=== PATIENT | female | born 1935 | race Hispanic/Latino ===

== ENCOUNTER 2016-07-03 09:24 | Outpatient (CLI) | payer MEDICARE, OTHER ==
[2016-07-03 16:53] LABS: ALT (SGPT) 13 U/L (8-55); AST (SGOT) 18 U/L (5-34); Alkaline Phosphatase 94 U/L (40-150); Anion Gap 11 mmol/L (10-20); BUN (Urea Nitrogen) 12 mg/dL (9.8-20.1); Bilirubin, Total 0.5 mg/dL (0.2-1.2); Calc. Creatinine Clearance 0 mL/min (70-130); Carbon Dioxide 28 mmol/L (23-31); Cardiac Risk 4.3 (Less than 4.5); Chloride 107 mmol/L (98-107); Cholesterol 170 mg/dL (< 200 Desired); Estimated GFR-MDRD 88; Globulin 2.5 g/dL (2.4-3.5); Glucose 89 mg/dL (83-110); HDL Cholesterol 40 mg/dL (>60 Neg Risk); LDL Cholesterol, Calculated 107 mg/dL; Potassium 4.7 mmol/L (3.5-5.1); Protein, Total 6.5 g/dL (5.8-8.1); Sodium 141 mmol/L (136-145); Triglycerides 116 mg/dL (Less than 150)
[2016-07-03 16:56] LABS: Thyroid Stimulating Hormone 2.3213 uIU/mL (0.35-4.94)
[2016-07-03 17:42] LABS: Eosinophils 1 % (0-10); Hemoglobin 14.7 g/dL (12.0-16.0); Lymphocytes 21 % (21-51); MDiff Complete? YES; Mean Corpuscular HGB CONC 31.8 g/dL (32.0-36.0); Mean Corpuscular Hemoglobin 30.2 pg (27.0-31.0); Mean Platelet Volume 9.4 fL (7.4-10.4); Monocytes 6 % (0-10); Neutrophil 72 % (42-75); Platelet Count 322 thou/uL (130-400); RBC Distribution Width 12.9 % (11.5-14.5); Red Blood Cell (RBC) Count 4.88 mill/uL (4.20-5.40); White Blood Cell (WBC) Count 10.9 thou/uL (4.8-10.8)
== END 2016-07-03 09:25 | disposition home or self-care (01) ==
LOC: LABLEX 09:24
PROVIDERS: ATTEND Family Medicine
DX: Z13.6 Encounter for screening for cardiovascular disorders (principal); M81.0 Age-related osteoporosis without current pathological fracture; R63.4 Abnormal weight loss
CPT/HCPCS: 80053; 80061; 82306; 84443; 85025

== ENCOUNTER 2016-07-18 13:52 | Outpatient (CLI) | payer MEDICARE, OTHER | END 2016-07-18 13:53 | disposition home or self-care (01) | LOC: LABLEX 13:52 | PROVIDERS: ATTEND Family Medicine | DX: R35.0 Frequency of micturition (principal) | CPT/HCPCS: 87086 ==

== ENCOUNTER 2016-07-19 11:41 | Outpatient (CLI) | payer MEDICARE, OTHER ==
--- NOTE | 2016-07-19 15:22 | RAD ---
LUMBAR SPINE THREE VIEWS: Date: 07-19-16 FINDINGS: No fracture was appreciated. The disc spaces are normal in height. Degenerative changes are present but minimal for age. Some calcification is seen in the aorta. The bones are minimally osteopenic. IMPRESSION: No acute findings. POS: HOME
== END 2016-07-19 11:42 | disposition home or self-care (01) ==
LOC: BURRAD 11:41
PROVIDERS: ATTEND Family Medicine
DX: M54.5 Low back pain (principal); R93.9 Diagnostic imaging inconclusive due to excess body fat of patient
CPT/HCPCS: 36415; 72100; 82565

== ENCOUNTER 2016-12-20 11:58 | Emergency (ER) | payer MEDICARE, MEDICAID ==
[~2016-12-20 11:58] MED LIST: Iopamidol 370 76% 100 ML VIAL ONE
[2016-12-20 12:34] LABS: Bilirubin Negative (Negative); Blood, Urine Trace (Negative); Clarity Clear (Clear); Glucose, Urine (Dipstick) Negative (Negative); Leukocyte Small (Negative); Nitrite Negative (Negative); Protein, Urine (Dipstick) Negative (Neg-Trace); Urobilinogen 0.2 mg/dL (0.2-1.0); pH, Urine 6.5 (5.0-9.0)
[2016-12-20] MEDS ORDERED: Ondansetron ODT 4 MG TAB ONE (12:34)
[2016-12-20 12:37] LABS: #Basophils 0.1 thou/uL (0.0-0.2); #Eosinphils 0.1 thou/uL (0.0-0.7); #Lymphocytes 2.3 thou/uL (1.20-3.40); #Monocytes 0.6 thou/uL (0.11-0.59); #Neutrophils 8.8 thou/uL (1.40-6.50); %Basophils 1.1 % (0.0-1.0); %Eosinophils 1.1 % (0.0-10.0); %Monocytes 5.2 % (0.0-10.0); %Neutrophils 73.6 % (42.0-75.0); Mean Corpuscular HGB CONC 32.8 g/dL (32.0-36.0); Mean Corpuscular Hemoglobin 30.7 pg (27.0-31.0); Mean Corpuscular Volume 93.7 fl (81.0-99.0); Mean Platelet Volume 8.8 fL (7.4-10.4); Platelet Count 305 thou/uL (130-400); RBC Distribution Width 12.4 % (11.5-14.5)
[2016-12-20 12:39] LABS: Bacteria/HPF Rare-Few HPF (None Seen); RBC/HPF 0-3 HPF (0-3); Squamous Epithelial 0-3 HPF (0-3); WBC/HPF 0-3 HPF (0-3)
[2016-12-20 12:49] LABS: ALT (SGPT) 12 U/L (8-55); AST (SGOT) 22 U/L (5-34); Albumin 4.4 g/dL (3.4-4.8); Alkaline Phosphatase 112 U/L (40-150); Anion Gap 13 mmol/L (10-20); BUN (Urea Nitrogen) 11 mg/dL (9.8-20.1); Bilirubin, Total 0.6 mg/dL (0.2-1.2); Calc. Creatinine Clearance 0 mL/min (70-130); Calcium 9.6 mg/dL (7.8-10.44); Carbon Dioxide 27 mmol/L (23-31); Chloride 103 mmol/L (98-107); Estimated GFR-MDRD 86; Globulin 3.5 g/dL (2.4-3.5); Glucose 96 mg/dL (83-110); Lipase 20 U/L (8-78); Potassium 4.3 mmol/L (3.5-5.1); Protein, Total 7.9 g/dL (6.0-8.3); Sodium 139 mmol/L (136-145)
--- NOTE | 2016-12-20 14:39 | CT ---
CT ABDOMEN WITH CONTRAST CT PELVIS WITH CONTRAST: DATE: 12-20-16 HISTORY: 81-year-old female with acute right lower quadrant abdominal pain. COMPARISON: 11-30-13 TECHNIQUE: IV injection of iodinated contrast media: 90 ml of Isovue Oral contrast media: Not administered FINDINGS: The appendix is not visualized. Because of lack of distention and lack of oral contrast, it is diffi cult to evaluate for mural thickening of the colon for colitis. There is no acute diverticulitis. Ur inary bladder has thin, normal blood. Uterus and appendix are surgically absent. Gallbladder is pres ent. No signs of acute cholecystitis. No major pathology identified involving the abdominal aorta, a drenals, pancreas, liver or spleen. Atherosclerotic calcification without aneurysm of the abdominal aorta and iliac arteries. No small bowel dilatation. No pneumoperitoneum or ascites. No pleural effu mango. No major interval change. IMPRESSION: 1. No acute findings. 2. Status post hysterectomy and appendectomy. KAMI Rees POS: [facility]
== END 2016-12-20 14:27 | disposition home or self-care (01) ==
LOC: BURERS 11:58
DX: K52.9 Noninfective gastroenteritis and colitis, unspecified (principal); M81.0 Age-related osteoporosis without current pathological fracture; F17.210 Nicotine dependence, cigarettes, uncomplicated
CPT/HCPCS: 74177; 80053; 81003; 81015; 83690; 85025; A4216; Q0162

== ENCOUNTER 2019-10-02 22:45 | Emergency (ER) | payer MEDICARE, OTHER ==
[2019-10-02 23:41] LABS: #Basophils 0.1 thou/uL (0.0-0.2); #Eosinphils 0.1 thou/uL (0.0-0.7); #Lymphocytes 2.1 thou/uL (1.20-3.40); #Monocytes 0.9 thou/uL (0.11-0.59); #Neutrophils 8.9 thou/uL (1.40-6.50); %Basophils 0.9 % (0.0-1.0); %Monocytes 7.2 % (0.0-10.0); %Neutrophils 73.9 % (42.0-75.0); Hemoglobin 12.5 g/dL (12.0-16.0); Mean Corpuscular Hemoglobin 29.8 pg (27.0-31.0); Mean Corpuscular Volume 96.2 fL (78.0-98.0); Mean Platelet Volume 9.4 fL (7.4-10.4); Platelet Count 267 thou/uL (130-400); White Blood Cell (WBC) Count 12.1 thou/uL (4.8-10.8)
[2019-10-02 23:56] LABS: ALT (SGPT) 13 U/L (8-55); AST (SGOT) 17 U/L (5-34); Albumin 3.9 g/dL (3.4-4.8); Alkaline Phosphatase 76 U/L (40-110); Anion Gap 12 mmol/L (10-20); BUN (Urea Nitrogen) 11 mg/dL (9.8-20.1); Bilirubin, Total 0.4 mg/dL (0.2-1.2); Calc. Creatinine Clearance 0 mL/min (70-130); Calcium 8.9 mg/dL (7.8-10.44); Carbon Dioxide 27 mmol/L (23-31); Chloride 106 mmol/L (98-107); Estimated GFR-MDRD Greater than 90; Globulin 2.3 g/dL (2.4-3.5); Glucose 112 mg/dL (83-110); Lipase 20 U/L (8-78); Potassium 3.6 mmol/L (3.5-5.1); Protein, Total 6.2 g/dL (6.0-8.3); Sodium 141 mmol/L (136-145)
== END 2019-10-03 00:55 | disposition home or self-care (01) ==
LOC: BURERS 22:45
DX: A05.9 Bacterial foodborne intoxication, unspecified (principal); M81.0 Age-related osteoporosis without current pathological fracture; F17.210 Nicotine dependence, cigarettes, uncomplicated
CPT/HCPCS: 36415; 80053; 83605; 83690; 85025; 93005

== ENCOUNTER 2020-03-19 20:49 | Emergency (ER) | payer MEDICARE, OTHER ==
[2020-03-19 22:10] LABS: #Basophils 0.2 thou/uL (0.0-0.2); #Eosinphils 0.1 thou/uL (0.0-0.7); #Lymphocytes 1.1 thou/uL (1.20-3.40); #Monocytes 1.1 thou/uL (0.11-0.59); #Neutrophils 15.4 thou/uL (1.40-6.50); %Basophils 0.9 % (0.0-1.0); %Eosinophils 0.3 % (0.0-10.0); %Lymphocytes 6.3 % (21.0-51.0); %Monocytes 6.3 % (0.0-10.0); %Neutrophils 86.1 % (42.0-75.0); Hemoglobin 12.2 g/dL (12.0-16.0); Mean Corpuscular HGB CONC 33.6 g/dL (32.0-36.0); Mean Corpuscular Hemoglobin 30.6 pg (27.0-31.0); Mean Corpuscular Volume 91.2 fL (78.0-98.0); Mean Platelet Volume 8.7 fL (7.4-10.4); Platelet Count 246 thou/uL (130-400); RBC Distribution Width 12.9 % (11.5-14.5); Red Blood Cell (RBC) Count 3.98 mill/uL (4.20-5.40); White Blood Cell (WBC) Count 17.8 thou/uL (4.8-10.8)
[2020-03-19 22:16] LABS: Bilirubin Negative (Negative); Blood, Urine Negative (Negative); Clarity Slightly Cloudy (Clear); Glucose, Urine (Dipstick) Negative (Negative); Ketone, Urine Trace mg/dL (Negative); Leukocyte Trace (Negative); Nitrite Negative (Negative); Protein, Urine (Dipstick) Negative (Neg-Trace); Specific Gravity, Urine 1.025 (1.005-1.030)
[2020-03-19 22:20] LABS: ALT (SGPT) 15 U/L (8-55); AST (SGOT) 21 U/L (5-34); Albumin 3.8 g/dL (3.4-4.8); Alkaline Phosphatase 68 U/L (40-110); Anion Gap 11 mmol/L (10-20); BUN (Urea Nitrogen) 10 mg/dL (9.8-20.1); Bilirubin, Total 0.3 mg/dL (0.2-1.2); Calc. Creatinine Clearance 0 mL/min (70-130); Calcium 8.3 mg/dL (7.8-10.44); Carbon Dioxide 27 mmol/L (23-31); Chloride 105 mmol/L (98-107); Globulin 2.1 g/dL (2.4-3.5); Glucose 137 mg/dL (83-110); Potassium 3.6 mmol/L (3.5-5.1); Protein, Total 5.9 g/dL (5.8-8.1); Sodium 139 mmol/L (136-145)
[2020-03-19 22:26] LABS: RBC/HPF 0-3 HPF (0-3); Squamous Epithelial 0-3 HPF (0-3)
[2020-03-19 22:27] LABS: Bacteria/HPF Rare-Few HPF (None Seen)
--- NOTE | 2020-03-20 10:34 | CT ---
PRELIMINARY REPORT/[facility]/EMERGENCY AFTER HOURS PROCEDURE: EXAM: CT Chest with Intravenous Contrast. CT Abdomen and Pelvis with Intravenous Contrast CLINICAL HISTORY: N/V, HX OF BREAST CA TECHNIQUE: Axial computed tomography images of the chest, abdomen and pelvis with intravenous contrast. CONTRAST: With; 100ML ISO 370 COMPARISON: None provided. FINDINGS: CHEST: LUNGS: Mild to moderate emphysematous changes noted. Radiation changes seen along the periphery of the righ t upper lobe and right middle lobe. No focal consolidation visualized. PLEURAL SPACES: No pleural effusion. No pneumothorax. HEART AND MEDIASTINUM: No cardiomegaly. No significant pericardial effusion. LYMPH NODES: No lymphadenopathy. ABDOMEN AND PELVIS: LIVER: Unremarkable. No focal lesions. GALLBLADDER AND BILE DUCTS: Punctate gallstones. No gross CT evidence for acute cholecystitis. PANCREAS: Unremarkable. SPLEEN: Unremarkable. ADRENAL GLANDS: Unremarkable. KIDNEYS, URETERS, AND BLADDER: Unremarkable. No hydronephrosis or nephrolithiasis. No ureteral or bladder calculi. STOMACH AND BOWEL: No obstruction. Scattered areas of wall thickening seen of the colon may represent possible mild non specific colitis APPENDIX: No CT evidence for appendicitis. PERITONEUM: No free fluid. No free air. LYMPH NODES: No lymphadenopathy. REPRODUCTIVE: Unremarkable as visualized. VASCULATURE: No aortic aneurysm. BONES AND SOFT TISSUES: Scattered sclerotic areas seen in the osseous structures may represent possible metastases. IMPRESSION: Mild to moderate emphysematous changes. Postradiation changes seen in the right upper lobe and right middle lobe. Scattered areas of wall thickening seen in the colon may represent a possible nonspecific colitis. N o evidence for bowel obstruction. ELECTRONICALLY SIGNED BY: Lorraine Martinez MD Mar 19, 2020 11:14:31 PM RESEARCH PHYSIOLOGIST This report is intended for review by the ordering physician only, in accordance of law. If you recei ve this report in error, please call [facility] at [phone]. FINAL REPORT CT CHEST AND ABDOMEN AND PELVIS WITH CONTRAST: Date: 03/19/2020 Comparison made with the prior study of 05/25/2019 done at [facility]. There is a history of breast cancer in this patient, along with a bone scan and prior CT suggesting s ome probable bony metastases. CT THORAX: Cuts through the low neck suggest that there may be some thyroid nodules bilaterally. This would be b herlinda assessed with ultrasound. The lungs show emphysematous changes, but no nodules, effusions, or i nfiltrates. There is some scarring in the lateral portions of the base of the right upper lobe and th e right middle lobe. These are likely post radiation induced. No mediastinal adenopathy was seen. A f ew calcifications were seen in the left coronary system, but not many. There is no pericardial effusi on. The aorta is normal in caliber throughout. CT ABDOMEN AND PELVIS: The liver, spleen, pancreas, and adrenal glands are unremarkable, though the left adrenal gland was d ifficult to assess fully. The kidneys shows no solid mass or hydronephrosis. There is probably a smal l subcentimeter cyst in the left kidney. The aorta shows arteriosclerotic change, but no dilation. Fluid is seen in the stomach and duodenum, and a few of the loops of proximal small bowel. None of th e areas are dilated or markedly thickened. Some of the colon might have some slight thickening of it s blood, but this is a borderline finding and not constant throughout. No free air or free fluid was seen. Distal small bowel is also somewhat fluid-filled. CT of the pelvis shows no pelvic masses or fluid collections. There are numerous sclerotic areas throughout both that are consistent with metastatic disease. These are predominantly located in the bony pelvis and the proximal left femur. At least one sclerotic are a is seen in one of the left ribs. Looking at the prior study, all of these were present before, but have increased in size slightly. They are presumed to be metastatic disease. IMPRESSION: 1. Nonspecific abdominal findings with no evidence of obstruction. Mild colitis or enteritis could b e present. 2. Findings consistent with sclerotic bony metastases, as has been mentioned before. Most of them sh ow slight growth since the April study. The total number does not seem more than previously. I would note that there may be a tiny metastasis attached to the meninges in the spinal canal at the L2 level , but this is less certain. 3. Emphysematous changes in the lungs. 4. Possible thyroid nodules. Report in agreement with preliminary reading by [facility]. POS: HOME
== END 2020-03-20 00:05 | disposition home or self-care (01) ==
LOC: BURERS 20:49
DX: N39.0 Urinary tract infection, site not specified (principal); R11.2 Nausea with vomiting, unspecified; Z85.3 Personal history of malignant neoplasm of breast; F17.210 Nicotine dependence, cigarettes, uncomplicated
CPT/HCPCS: 36415; 71260; 74177; 80053; 81003; 81015; 84484; 85025; 93005; Q9967

== ENCOUNTER 2020-11-25 14:03 | Emergency (ER) | payer MEDICARE, OTHER ==
[2020-11-25 15:40] LABS: #Basophils 0.1 thou/uL (0.0-0.2); #Eosinphils 0.1 thou/uL (0.0-0.7); #Lymphocytes 1.3 thou/uL (1.20-3.40); #Monocytes 0.7 thou/uL (0.11-0.59); #Neutrophils 12.4 thou/uL (1.40-6.50); %Basophils 0.6 % (0.0-1.0); %Eosinophils 0.4 % (0.0-10.0); %Lymphocytes 8.9 % (21.0-51.0); %Monocytes 4.7 % (0.0-10.0); %Neutrophils 85.3 % (42.0-75.0); Hemoglobin 12.4 g/dL (12.0-16.0); Mean Corpuscular HGB CONC 32.8 g/dL (32.0-36.0); Mean Corpuscular Hemoglobin 30.1 pg (27.0-31.0); Mean Corpuscular Volume 91.9 fL (78.0-98.0); Mean Platelet Volume 9.7 fL (7.4-10.4); Platelet Count 258 thou/uL (130-400); RBC Distribution Width 14.1 % (11.5-14.5); Red Blood Cell (RBC) Count 4.12 mill/uL (4.20-5.40); White Blood Cell (WBC) Count 14.6 thou/uL (4.8-10.8)
[2020-11-25 15:41] LABS: ALT (SGPT) 23 U/L (8-55); AST (SGOT) 26 U/L (5-34); Albumin 3.8 g/dL (3.4-4.8); Alkaline Phosphatase 76 U/L (40-110); Anion Gap 12 mmol/L (10-20); BUN (Urea Nitrogen) 9 mg/dL (9.8-20.1); Bilirubin, Total 0.5 mg/dL (0.2-1.2); Calc. Creatinine Clearance 0 mL/min (70-130); Calcium 8.7 mg/dL (7.8-10.44); Carbon Dioxide 26 mmol/L (23-31); Chloride 104 mmol/L (98-107); Globulin 2.3 g/dL (2.4-3.5); Glucose 107 mg/dL (83-110); Lipase 16 U/L (8-78); Potassium 3.8 mmol/L (3.5-5.1); Protein, Total 6.1 g/dL (5.8-8.1); Sodium 138 mmol/L (136-145)
[2020-11-25] MEDS ORDERED: Ondansetron PF 4 MG/2 ML Vial ONE (15:45)
[2020-11-25 16:13] LABS: Bilirubin Negative (Negative); Blood, Urine Negative (Negative); Clarity Clear (Clear); Glucose, Urine (Dipstick) Negative (Negative); Ketone, Urine Negative (Negative); Leukocyte Negative (Negative); Nitrite Negative (Negative); Protein, Urine (Dipstick) Negative (Neg-Trace); Urobilinogen 0.2 mg/dL (Less than 2)
[2020-11-26 18:41] LABS: SARS-CoV-2 PCR by NAA Not Detected (NotDetected)
== END 2020-11-25 17:10 | disposition home or self-care (01) ==
LOC: BURERS 14:03
DX: R10.9 Unspecified abdominal pain (principal); R11.2 Nausea with vomiting, unspecified; M81.0 Age-related osteoporosis without current pathological fracture; F17.210 Nicotine dependence, cigarettes, uncomplicated; Z20.822 Contact with and (suspected) exposure to COVID-19; Z85.3 Personal history of malignant neoplasm of breast
CPT/HCPCS: 74177; 80053; 81003; 83605; 83690; 85025; 93005; 96374; 99284; U0003; U0005; 36415; J2405

== ENCOUNTER 2021-02-08 18:57 | Emergency (ER) | payer MEDICARE, OTHER ==
[2021-02-08 19:31] LABS: #Basophils 0.1 thou/uL (0.0-0.2); #Eosinphils 0.1 thou/uL (0.0-0.7); #Lymphocytes 1.1 thou/uL (1.20-3.40); #Neutrophils 14.6 thou/uL (1.40-6.50); %Basophils 0.7 % (0.0-1.0); %Eosinophils 0.4 % (0.0-10.0); %Lymphocytes 6.6 % (21.0-51.0); %Monocytes 5.6 % (0.0-10.0); %Neutrophils 86.7 % (42.0-75.0); Hemoglobin 12.8 g/dL (12.0-16.0); Mean Corpuscular HGB CONC 33.4 g/dL (32.0-36.0); Mean Corpuscular Hemoglobin 30.8 pg (27.0-31.0); Mean Platelet Volume 8.1 fL (7.4-10.4); Platelet Count 293 thou/uL (130-400); Red Blood Cell (RBC) Count 4.15 mill/uL (4.20-5.40); White Blood Cell (WBC) Count 16.8 thou/uL (4.8-10.8)
[2021-02-08 19:44] LABS: Bilirubin Small (Negative); Blood, Urine Negative (Negative); Clarity Clear (Clear); Glucose, Urine (Dipstick) Negative (Negative); Ketone, Urine 15 mg/dL (Negative); Leukocyte Negative (Negative); Nitrite Negative (Negative); Protein, Urine (Dipstick) Trace mg/dL (Neg-Trace); Specific Gravity, Urine 1.025 (1.005-1.030)
[2021-02-08 19:45] LABS: ALT (SGPT) 24 U/L (8-55); AST (SGOT) 32 U/L (5-34); Acetaminophen Less than 6.0 mcg/mL (10.0-30.0); Albumin 3.8 g/dL (3.4-4.8); Alcohol Less than 10 mg/dL (Less than 10); Alkaline Phosphatase 88 U/L (40-110); Anion Gap 11 mmol/L (10-20); BUN (Urea Nitrogen) 16 mg/dL (9.8-20.1); Bilirubin, Total 0.3 mg/dL (0.2-1.2); Calc. Creatinine Clearance 0 mL/min (70-130); Calcium 9.1 mg/dL (7.8-10.44); Carbon Dioxide 27 mmol/L (23-31); Chloride 105 mmol/L (98-107); Globulin 2.5 g/dL (2.4-3.5); Glucose 157 mg/dL (83-110); Magnesium 2.2 mg/dL (1.6-2.6); Potassium 3.9 mmol/L (3.5-5.1); Protein, Total 6.3 g/dL (5.8-8.1); Salicylate Less than 8.0 mg/dL (15.0-30.0); Sodium 139 mmol/L (136-145)
== END 2021-02-08 20:20 | disposition home or self-care (01) ==
LOC: BURERS 18:57
DX: R53.1 Weakness (principal); D72.829 Elevated white blood cell count, unspecified; M81.0 Age-related osteoporosis without current pathological fracture; F17.210 Nicotine dependence, cigarettes, uncomplicated; Z85.3 Personal history of malignant neoplasm of breast
CPT/HCPCS: 71045; 80053; 80307; 81003; 83605; 83690; 83735; 84484; 85025; 93005; 94760